=== PATIENT | female | born 1965 | race Caucasian/White ===

== ENCOUNTER 2017-06-15 06:44 | Day surgery (SDC) | payer BC ==
[2017-06-15] MEDS ORDERED: LIDOCAINE HCL 1% MPF SOL ONE ×2 (07:30)
[2017-06-15] MEDS ORDERED: PROPOFOL 500 MG/50 ML EMU IV ONE (07:30)
[2017-06-15 09:02] VITALS: O2SAT 97
[2017-06-15 09:13] VITALS: BP 128/80; PULSE 74; RESP 18; TEMP 97.4
== END 2017-06-15 09:35 | disposition home or self-care (01) ==
LOC: SURG 06:44
PROVIDERS: ATTEND Surgery
DX: Z12.11 Encounter for screening for malignant neoplasm of colon (principal); Z80.0 Family history of malignant neoplasm of digestive organs; Z86.010 Personal history of colon polyps; K57.30 Diverticulosis of large intestine without perforation or abscess without bleeding
CPT/HCPCS: J2001; J2704